=== PATIENT | male | born 1950 | race Caucasian/White ===

== ENCOUNTER 2016-05-20 12:51 | Emergency (ER) | payer SELFPAY ==
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
[~2016-05-20 12:51] MED LIST: ADVAIR 5001 DISK W/D; AMITRYPTYLINE; ASPIRIN; COMBIVENT INH14.7 GM; EFFEXOR XR; FOLIC ACID; GLYNASE PO; LASIX; LEVAQUIN PO; LISINOPRIL; NEURONTIN; NEXIUM; NOVOLOG INSULIN; REMERON; ZAROXYLYN; ZOCOR
== END 2016-05-20 12:54 | disposition home or self-care (01) ==
LOC: CFTX 12:51
DX: S81.801A Unspecified open wound, right lower leg, initial encounter (principal); S16.1XXA Strain of muscle, fascia and tendon at neck level, initial encounter; S00.93XA Contusion of unspecified part of head, initial encounter; Z23 Encounter for immunization; E11.9 Type 2 diabetes mellitus without complications; F17.210 Nicotine dependence, cigarettes, uncomplicated; V49.40XA Driver injured in collision with unspecified motor vehicles in traffic accident, initial encounter; Y92.410 Unspecified street and highway as the place of occurrence of the external cause
CPT/HCPCS: 70450; 72125; 73590; 90471; 90715; 99284